=== PATIENT | female | born 1970 | race Caucasian/White ===

== ENCOUNTER 2018-01-27 08:01 | Outpatient (CLI) | payer OTHER | END 2018-01-27 08:02 | disposition home or self-care (01) | LOC: BICMAMMO 08:01 | PROVIDERS: ATTEND Physician Assistant | DX: Z13.820 Encounter for screening for osteoporosis (principal); N95.8 Other specified menopausal and perimenopausal disorders | CPT/HCPCS: 77080 ==

== ENCOUNTER 2018-05-21 12:08 | Outpatient (CLI) | payer OTHER ==
--- NOTE | 2018-05-21 13:08 | RAD ---
TWO VIEWS CHEST: Comparison: None. History: Chest pain. FINDINGS: Two views of the chest show normal sized cardiomediastinal silhouette. There is no evidence of consol idation, mass, or pleural effusion. The bones are unremarkable. IMPRESSION: No evidence of acute cardiopulmonary disease. POS: [facility]
--- NOTE | 2018-05-21 13:14 | RAD ---
LEFT HAND THREE VIEWS: History: Polyarthritis. FINDINGS/IMPRESSION: No fracture, dislocation, bony destruction or significant osteophyte formation or erosive changes are seen. POS: [facility]
--- NOTE | 2018-05-21 14:03 | RAD ---
THREE VIEWS RIGHT HAND: Comparison: 04-20-16 History: Right hand pain. FINDINGS: Three views of the right hand shows no evidence of acute fracture or dislocation. No degenerative hussein nges are seen. No focal soft tissue swelling is seen. IMPRESSION: Unremarkable exam. POS: [facility]
--- NOTE | 2018-05-21 14:15 | RAD ---
LEFT FOOT 3 VIEWS: Date: 05/21/18 HISTORY: Polyarthritis. FINDINGS/IMPRESSION: No fracture, dislocation, bony destruction, or significant erosive changes/osteophyte formation is id entified. Tiny posterior and plantar calcaneal spurs are present. POS: [facility]
--- NOTE | 2018-05-21 14:16 | RAD ---
RIGHT FOOT 3 VIEWS: Date: 05/21/18 HISTORY: Polyarthritis, right foot pain. FINDINGS/IMPRESSION: No fracture, dislocation, bony destruction, osteophyte formation, or erosive changes are identified. There are posterior and plantar calcaneal spurs. POS: [facility]
--- NOTE | 2018-05-21 14:28 | RAD ---
LEFT KNEE THREE VIEWS: History: 47-year-old female with history of polyarthritis. FINDINGS/IMPRESSION: Mild tricompartment degenerative and osteoarthrosis changes. No fracture, dislocation, or other acute process. POS: [facility]
--- NOTE | 2018-05-21 14:30 | RAD ---
THREE VIEWS RIGHT KNEE: Indication: Polyarthritis. FINDINGS: There is moderate osteoarthritis of the right knee, preferentially involving the medial compartment. Post-operative ACL reconstructive surgery noted. No fracture or dislocation is identified. IMPRESSION: 1. No acute osseous abnormality with post-operative right knee. 2. Moderate osteoarthritis. POS: [facility]
== END 2018-05-21 12:09 | disposition home or self-care (01) ==
LOC: RAD 12:08
PROVIDERS: ATTEND Internal Medicine Rheumatology
DX: G56.03 Carpal tunnel syndrome, bilateral upper limbs (principal); M13.0 Polyarthritis, unspecified; R53.81 Other malaise; R53.83 Other fatigue; M17.0 Bilateral primary osteoarthritis of knee; M77.32 Calcaneal spur, left foot; M77.31 Calcaneal spur, right foot
CPT/HCPCS: 71046

== ENCOUNTER → 2020-08-08 | Emergency (ER) | payer OTHER ==
--- NOTE | 2020-08-08 16:01 | RAD ---
RIGHT ANKLE 4 VIEWS: Date: 08/08/2020 HISTORY: Trauma. Pain. FINDINGS: Mild soft tissue swelling. Intact ankle mortise. No fracture. There is a remote injury involving the medial malleolus. IMPRESSION: No fracture. Findings conveyed to Dr. Reid on 08/08/2020 at 12:41 p.m. CODE CR. POS: OFF
--- NOTE | 2020-08-08 16:03 | RAD ---
RIGHT KNEE 4 VIEWS: Date: 08/08/2020 HISTORY: Trauma. Pain. FINDINGS: There is a small suprapatellar effusion. There is moderate degenerative change in the patellofemoral compartment and medial compartment. There is no evidence of fracture. There is evidence of previous A CL repair. IMPRESSION: 1. Small joint effusion. No fracture. 2. Previous ACL repair. If there is concern for internal derangement, MRI can be performed. 3. Bicompartmental degenerative change. Results of study conveyed to Dr. Reid on 08/08/2020 at 12:41 p.m. CODE CR. POS: OFF
== END ==
LOC: ERS 10:55
DX: S93.401A Sprain of unspecified ligament of right ankle, initial encounter (principal); S83.91XA Sprain of unspecified site of right knee, initial encounter; X50.1XXA Overexertion from prolonged static or awkward postures, initial encounter